=== PATIENT | female | born 1950 | race Caucasian/White ===

== ENCOUNTER 2016-07-05 07:12 | Emergency (ER) | payer OTHER ==
[2016-07-05] MEDS ORDERED: IPRATROPIUM/ALBUTEROL 3 ML DEYVIAL IH ONE (07:51)
--- NOTE | 2016-07-05 08:02 | UCPHY ---
H & P Time Seen by Provider: 07/05/16 07:31 Patient Type: Established HPI/ROS: This patient has a cough for more than a month now that has typically been a mild dry cough intermittently but has become much more frequent and now productive of some sputum over the past 24 hours. She had difficulty sleeping last night due to the frequent coughing. She reports no other associated symptoms except mild coryza. ROS: No fevers chills or other constitutional symptoms. HEENT: Mild coryza but no sinus pressure. Pulmonary: No dyspnea. No pleuritic pain or other chest pain. No wheezing noted. Cardiovascular: No leg swelling or calf pain. No lightheadedness. GI: No complaints and 10 point ROS is otherwise negative. Smoking Status: Never smoked Physical Exam: General Appearance: Alert, no distress. Eyes: Pupils equal and round no pallor or injection. ENT, Mouth: Mucous membranes moist. Respiratory: There are no retractions, lungs are clear to auscultation. I appreciate no rales, rhonchi or wheeze. Cardiovascular: Regular rate and rhythm. No murmur gallop or rub. No JVD. No peripheral edema. Neurological: Alert with no focal deficits. Skin: Warm and dry, no rashes. Musculoskeletal: Neck is supple nontender. Extremities are symmetrical, full range of motion. Psychiatric: Patient is anxious but pleasant. When asked if she has depression she is tearful in admits that she does have depression. She is being treated for this. She denies any suicidal ideation. She has a follow-up appointment with her psychiatrist schedule. DIFFERENTIAL DIAGNOSIS: After history and physical exam differential diagnosis was considered for pulmonary lesion, side effect of Brennon inhibitor, reactive airway disease, pneumonia, bronchitis Constitutional: Initial Vital Signs Temperature (C) 37.4 C 07/05/16 07:23 Heart Rate 98 07/05/16 07:23 Respiratory Rate 18 07/05/16 07:23 Blood Pressure 149/73 H 07/05/16 07:23 O2 Sat (%) 94 07/05/16 07:23 O2 Delivery Mode Room Air Allergies/Adverse Reactions: Sulfa (Sulfonamide Antibiotics) Allergy (Verified 05/09/15 14:34) Home Medications: Medication Instructions Recorded LEVOTHYROXINE SODIUM 12/20/14 LaMICtal 12/20/14 Xanax 07/30/15 Lexapro 05/09/15 Lisinopril 05/09/15 Albuterol Hfa Anes Only [Proair 2 puffs IH Q4 PRN #1 mdi 07/05/16 Hfa Icu (*)] Doxycycline Hyclate 100 mg PO BID #14 capsule 07/05/16 Fluticasone Hfa 220 Mcg [Flovent 2 puffs IH DAILY #1 mdi 07/05/16 220 MCG Hfa MDI (*)] MDM/Departure - MDM Diagnostics: Her peak flow was 305 with a target of 415 Chest x-ray: Mild airway disease with no focal infiltrate by my interpretation Medications Given: Discontinued Medications Albuterol/Ipratropium (Duoneb) 3 ml IH EDNOW ONE Stop: 07/05/16 07:52 Last Admin: 07/05/16 08:07 Dose: 3 ml ED Course/Re-evaluation: Patient with chronic cough and reactive airway findings of diminished peak flow and slightly diminished O2 sat 94%. She improved with a DuoNeb. She may have a viral URI contributing to reactive airway disease, viral bronchitis, cough response to lisinopril. I counseled regarding this. Given the mild elevation of her white blood cell counts and chronic cough will treat her with doxycycline to cover atypical bacteria. She will follow up with primary care physician for any ongoing symptoms she may warrant having the lisinopril D/c'd. - Depart Disposition: Home, Routine, Self-Care Clinical Impression: Chronic cough Reactive airway disease Qualifiers: Asthma severity: mild intermittent Asthma complication type: with acute exacerbation Qualifier Code: (J45.21) Mild intermittent asthma with (acute) exacerbation Condition: Good Instructions: Reactive Airways Disease (ED) Additional Instructions: Diagnoses: 1. Chronic cough 2. Reactive airway disease Plan: Humidifier Albuterol inhaler with spacer for cough, wheeze or shortness of breath Flovent steroid inhaler diminished inflammation that is contributing to her symptoms. You had a mild elevation of your white blood cell count in her symptoms may be attributable to an infection. However if the symptoms persist despite the antibiotic then the cause may be a side effect of the lisinopril. Monitor your peak flow. As you improve you will likely be able to achieve peak flow of greater than 400. Call your primary physician to arrange follow-up appointment for sometime within the next 5-10 days Go The emergency department for any significant worsening despite the treatment plan. Follow up with the machine operator assistant listed below if he have any ongoing symptoms despite all of the above plans. Prescriptions: Doxycycline Hyclate 100 mg PO BID #14 capsule Fluticasone Hfa 220 Mcg [Flovent 220 MCG Hfa MDI (*)] 2 puffs IH DAILY #1 mdi Albuterol Hfa Anes Only [Proair Hfa Icu (*)] 2 puffs IH Q4 PRN #1 mdi PRN Reason: Wheezing Referrals: [place] Avelar MD [Primary Care Provider] - As per Instructions - PQRS PQRS Measurement: 134: Depression screening and followup, PRIME MD-PHQ2 (12 years and older) Over the last 2 weeks, how often have you been bothered by any of the following problems? 1. Feeling down, depressed, or hopeless? 2. Little interest or pleasure in doing things? Patient answered yes to at least 1, referred to her psychiatrist for further evaluation. 130: Documentation of medications. Reviewed all patient medications, doses, route and frequency. 226: Do you smoke? [No.] 47: 65 and older: Advanced care planning. Patient designates surrogate decision maker as her daughter, Avis Hamilton 51: 18 years old and older with diagnosis of COPD, spirometry performance. NA 52: 18 years old and older with COPD and symptoms of COPD or FEV1<60% predicted prescribed a B Agonist. NA
[2016-07-05 08:38] LABS: % IMMATURE GRANULYOCYTES 1.5 % (0.0-1.1); ABSOLUTE IMMATURE GRANULOCYTES 0.15 10^3/uL (0.00-0.10); ADD DIFF? NO; ADD MORPH? NO; ADD SCAN? NO; ATYPICAL LYMPHOCYTE FLAG 10 (0-99); FRAGMENT RBC FLAG 0 (0-99); HEMATOCRIT 45.9 % (38.0-47.0); LEFT SHIFT FLG 10 (0-99); LIPEMIA HEMOLYSIS FLAG 80 (0-99); MEAN CELL HEMOGLOBIN 29.8 pg (27.9-34.1); MEAN CELL HEMOGLOBIN CONCENTR. 32.7 g/dL (32.4-36.7); MEAN CELL VOLUME 91.1 fL (81.5-99.8); MEAN PLATELET VOLUME 9.3 fL (8.7-11.7); PLATELET CLUMPS FLAG 0 (0-99); PLATELET COUNT 238 10^3/uL (150-400); RED BLOOD CELL COUNT 5.04 10^6/uL (4.18-5.33); RED CELL DISTRIBUTION WIDTH 12.7 % (11.5-15.2)
[2016-07-05 08:54] VITALS: BP 155/88; PULSE 90; RESP 16; TEMP 98.8; O2SAT 95
--- NOTE | 2016-07-05 09:13 | DX ---
PA and lateral chest. Clinical History: chronic cough Comparison Study: None available. Findings: The lungs are clear. No pleural disease identified. Heart size is normal. Mild central bronchial wall thickening suggests mild bronchitis... Impression: Mild central bronchitis, otherwise normal..
== END 2016-07-05 09:03 | disposition home or self-care (01) ==
LOC: CED 07:12
DX: R05 Cough (principal); J45.21 Mild intermittent asthma with (acute) exacerbation; Z88.2 Allergy status to sulfonamides
CPT/HCPCS: 71020; G0463; 85025-PO; 99214-PO

== ENCOUNTER → 2017-03-16 | Outpatient (CLI) | payer OTHER | LOC: CIMAGING 09:59 | PROVIDERS: ATTEND Internal Medicine | DX: Z12.31 Encounter for screening mammogram for malignant neoplasm of breast (principal) | CPT/HCPCS: G0202 ==

== ENCOUNTER → 2018-03-17 | Outpatient (CLI) | payer OTHER | LOC: FIMAGING 09:44 | PROVIDERS: ATTEND Nurse Practitioner | DX: Z12.31 Encounter for screening mammogram for malignant neoplasm of breast (principal); Z80.3 Family history of malignant neoplasm of breast; Z13.820 Encounter for screening for osteoporosis; M85.88 Other specified disorders of bone density and structure, other site; E03.9 Hypothyroidism, unspecified; I10 Essential (primary) hypertension; E78.5 Hyperlipidemia, unspecified ==

== ENCOUNTER → 2018-06-07 | Outpatient (CLI) | payer OTHER | LOC: FIMAGING 08:51 | PROVIDERS: ATTEND Orthopaedic Surgery | DX: Z96.651 Presence of right artificial knee joint (principal); M17.12 Unilateral primary osteoarthritis, left knee | CPT/HCPCS: 78315; A9503 ==

== ENCOUNTER → 2018-08-17 | Outpatient (CLI) | payer OTHER | LOC: CIMAGING 10:59 | PROVIDERS: ATTEND Emergency Medicine | DX: J40 Bronchitis, not specified as acute or chronic (principal) | CPT/HCPCS: 71046-PO ==